=== PATIENT | female | born 1960 | race Caucasian/White ===

== ENCOUNTER → 2019-09-26 | Outpatient (CLI) | payer OTHER ==
[~2019-09-26] VITALS: Ht 165.1 cm; Wt 62.6 kg
[~2019-09-26] MED LIST: HYDROCHLOROTHIA25 M1 PO; MULTIVITAMINS1 EAC7 PO; ZYRTEC10 M5 PO
--- NOTE | ~2019-09-26 | P ---
[facility] [place] [address] PROCEDURE REPORT Name: LOVE ISAAC Room #: REG Sumit Miguel Angel#: [id number] Admission: 09/26/19 Attend Phys: Toan Gregory MD Discharge: Date of : 62 Report #: [id number] THIS REPORT FOR: cc: Toan Cabrera MD, John J. MD Thesing, John A. MD ~ CC: Ramya Gregory DATE OF SERVICE: 09/26/2019 OUTPATIENT COLONOSCOPY REPORT BRIEF HISTORY: The patient is a 59-year-old woman with a family history of colon polyps. Last colonoscopy was about 5 years ago. PREOPERATIVE DIAGNOSIS: Family history of colon polyps. POSTOPERATIVE DIAGNOSIS: Small internal hemorrhoids. MEDICATIONS: Deep sedation with propofol per anesthesia. SPECIMEN: None. ESTIMATED BLOOD LOSS: None. PROCEDURE: Colonoscopy to cecum and terminal ileum. FINDINGS: Prior to propofol sedation, procedure of colonoscopy discussed with the patient as well as potential risks and its complications. She indicates she understands and desires to proceed. DESCRIPTION OF PROCEDURE: With the patient in left lateral decubitus position, digital examination was completed, which revealed no abnormalities. Subsequently, the Olympus video colonoscope was introduced into the rectum, advanced under direct vision to the cecum. Cecum was identified by the ileocecal valve and the appendiceal orifice. I was able to visualize the distal segment of the terminal ileum, which was inspected and noted to be unremarkable. At that point, the scope was slowly withdrawn and careful circumferential views were obtained including retroflexing the scope in the ascending colon. Upon slow withdrawal of the scope, the prep was excellent. Mucosa was within normal limits, normal vascular pattern, normal light reflex. As we withdrew the scope, no neoplastic lesions were seen. The colonic mucosa was normal throughout the entire colon. No mucosal abnormalities or neoplastic changes were seen anywhere in her colon. She had a normal colon. The scope was withdrawn in the rectum, [facility] [address] [place] [address] PROCEDURE REPORT Name: LOVE ISAAC Nithya Room #: REG [facility]#: [id number] Admission: 09/26/19 Attend Phys: Toan Gregory MD Discharge: Date of : 62 Report #: [id number] no abnormalities were seen. Upon retroflexion, small hemorrhoids and small tags were seen. There was no evidence of bleeding. No other abnormalities were seen. Scope was withdrawn. The patient tolerated the procedure well. CONDITION OF THE PATIENT UPON DISCHARGE: Following procedure, the patient drowsy and arousable. She will be discharged home when fully ambulatory. INSTRUCTIONS TO THE PATIENT AND FAMILY AT THE TIME OF DISCHARGE: No neoplastic lesions seen today. She reports her brother was found to have colon polyps and he was advised to tell all family members that they needed colonoscopies. She does not know if there are any genetic issues with regards to his polyps or whether he had a large number of polyps. I have recommended she discuss with her brother specifics regarding his colon polyps with regards to polyp. No polyps were seen today. If she is considered average risk, she is to return in 10 years. However, if there is a significant issue with regards to family history of colon polyps in particular concern for a genetic syndrome, more frequent colonoscopy may be indicated. I will be happy to review any records regarding her brother if she would like to do so. Withdrawal time from cecum was 11 minutes and 1 second. Previous colonoscopy was 5 years ago. By: [id number] Toan Gregory MD /nt
== END | disposition home or self-care (01) ==
LOC: GI 08:21
PROVIDERS: ATTEND Specialist
DX: Z12.11 Encounter for screening for malignant neoplasm of colon (principal); Z83.71 Family history of colonic polyps; K64.8 Other hemorrhoids; Z98.890 Other specified postprocedural states; Z79.899 Other long term (current) drug therapy; Z88.2 Allergy status to sulfonamides; Z11.59 Encounter for screening for other viral diseases
CPT/HCPCS: 62110; 62900